=== PATIENT | male | born 2000 | race Hispanic/Latino ===

== ENCOUNTER 2019-01-28 21:58 | Emergency (ER) | payer BC ==
[2019-01-28 22:08] VITALS: BP 154/74
--- NOTE | 2019-01-28 22:12 | Emergency Department Report ---
Blank Doc - Documentation Documentation: 18 y o male presents to Ed with left knee pain, popped his knee twice while com ing down stairs ct knee ordered ACC eval
--- NOTE | 2019-01-28 23:16 | Emergency Department Report ---
ED Extremity Problem HPI - General Chief complaint: Extremity Injury, Lower Stated complaint: LEFT KNEE INJURY Time Seen by Provider: 01/28/19 22:03 Source: patient Mode of arrival: Wheelchair Limitations: No Limitations - History of Present Illness Initial comments: Pt is a 18 yo male who presents to the ED with left knee pain that began yesterday. He states he was walking and made a turn and felt a popping sensation in his left knee yesterday. He states then today he was walking down the steps and felt another popping sensation and fell to the ground. He states he is able to ambulate but it is uncomfortable. He denies any prior injuries. He denies any numbness. Severity scale (0 -10): 3 - Related Data Previous Rx's Medication Instructions Recorded Last Taken Type Ibuprofen 800 mg PO Q6HR PRN #20 tablet 01/28/19 Unknown Rx Allergies Allergy/AdvReac Type Severity Reaction Status Date / Time No Known Allergies Allergy Verified 01/06/16 22:54 ED Review of Systems ROS: Stated complaint: LEFT KNEE INJURY Other details as noted in HPI Comment: All other systems reviewed and negative ED Past Medical Hx - Past Medical History Previous Medical History?: No - Surgical History Past Surgical History?: Yes Hx Appendectomy: Yes - Social History Smoking Status: Never Smoker Substance Use Type: Alcohol - Medications Home Medications: Home Medications Medication Instructions Recorded Confirmed Last Taken Type Ibuprofen 800 mg PO Q6HR PRN #20 tablet 01/28/19 Unknown Rx ED Physical Exam - General Limitations: No Limitations General appearance: alert, in no apparent distress - Head Head exam: Present: atraumatic, normocephalic - Eye Eye exam: Present: normal appearance - ENT ENT exam: Present: mucous membranes moist - Respiratory Respiratory exam: Absent: respiratory distress - Cardiovascular Cardiovascular Exam: Present: regular rate - Extremities Exam Extremities exam: Present: other (mild amount of edema to the left knee, no joint laxity, TTP over the lateral portion of the left knee, FROM of the left knee with pain ) - Neurological Exam Neurological exam: Present: alert, oriented X3 - Psychiatric Psychiatric exam: Present: normal affect, normal mood - Skin Skin exam: Present: warm, dry, intact ED Course Vital Signs 01/28/19 22:05 Temperature 97.9 F Pulse Rate 91 H Respiratory 20 Rate Blood Pressure 154/74 O2 Sat by Pulse 100 Oximetry ED Medical Decision Making - Radiology Data Radiology results: report reviewed CLINICAL INDICATION: Male, 18 years of age. left knee pain, popping sensation COMPARISON: None available. FINDINGS: 3 views of the left knee obtained. Soft tissue swelling at the anterior margin of the knee. Small to moderate suprapatellar effusion. Bony structures are intact. Joint spaces are maintained. No acute fracture or dislocation. IMPRESSION: No acute bony abnormality. Soft tissue swelling and small to moderate suprapatellar effusion. This document is electronically signed by Yusuf Adan DO., January 28 2019 11:29:09 PM ET - Medical Decision Making Pt is a 18 yo male who presents to the ED with left knee pain that began yesterday. He states he was walking and made a turn and felt a popping sensation in his left knee yesterday. He states then today he was walking down the steps and felt another popping sensation and fell to the ground. He states he is able to ambulate but it is uncomfortable. He denies any prior injuries. He denies any numbness. Pt has edema and pain to the left lateral knee, no obvious joint laxity, no obvious deformity. XR of the knee with mild to moderate joint effusion otherwise normal. Will order outpatient MRI of the left knee for tomorrow (01/29/19), Dr. Martini agrees with order. Texted Dr. Ramirez, orthopedic who will follow up on left knee MRI and see patient in clinic. Will place pt in knee immobilizer and give crutches. Advised to use rest, ice, elevation. Will give anti-inflammatory. Advised to return to the ED for any new or worsening symptoms. - Differential Diagnosis fracture, dislocation, sprain, strain, tear Critical care attestation.: If time is entered above; I have spent that time in minutes in the direct care of this critically ill patient, excluding procedure time. ED Disposition Clinical Impression: Knee pain Qualifiers: Chronicity: acute Laterality: left Qualified Code(s): M25.562 - Pain in left knee Knee effusion Qualifiers: Laterality: left Qualified Code(s): M25.462 - Effusion, left knee Knee strain Qualifiers: Encounter type: initial encounter Laterality: left Qualified Code(s): S86.912A - Strain of unspecified muscle(s) and tendon(s) at lower leg level, left leg, initial encounter Disposition: TO HOME OR SELFCARE Is pt being admited?: No Does the pt Need Aspirin: No Condition: Stable Instructions: Knee Effusion (ED), Knee Pain (ED), Knee Immobilizer (ED) Additional Instructions: Follow up with orthopedic [facility]. Get MRI of left knee completed on 01/29. Follow up with PCP in the next 2-3 days. use rest, ice, elevation. Return to the emergency room for any new or worsening symptoms. Prescriptions: Ibuprofen 800 mg PO Q6HR PRN #20 tablet PRN Reason: Pain, Moderate (4-6) Referrals: DONAVNO MARTÍNEZ MD [Primary Care Provider] - 2-3 Days NORM RAMIREZ MD [Staff Physician] - [facility] Forms: Work/School Release Form(ED) Time of Disposition: 23:40 Print Language: TOGOLESE
--- NOTE | 2019-01-28 23:31 | XRay Report ---
XR KNEE 3V LT CLINICAL INDICATION: Male, 18 years of age. left knee pain, popping sensation COMPARISON: None available. FINDINGS: 3 views of the left knee obtained. Soft tissue swelling at the anterior margin of the knee. Small to moderate suprapatellar effusion. Bony structures are intact. Joint spaces are maintained. No acute fracture or dislocation. IMPRESSION: No acute bony abnormality. Soft tissue swelling and small to moderate suprapatellar effusion. This document is electronically signed by Yusuf Adan DO., January 28 2019 11:29:09 PM ET
== END 2019-01-29 00:25 | disposition home or self-care (01) ==
LOC: ED 21:58
DX: S86.912A Strain of unspecified muscle(s) and tendon(s) at lower leg level, left leg, initial encounter (principal); M25.462 Effusion, left knee; X50.9XXA Other and unspecified overexertion or strenuous movements or postures, initial encounter; Y93.89 Activity, other specified; Y92.89 Other specified places as the place of occurrence of the external cause; Y99.8 Other external cause status

== ENCOUNTER 2019-01-29 10:52 | Outpatient (CLI) | payer BC ==
--- NOTE | 2019-01-29 13:50 | Magnetic Resonance Report ---
MR LOWER EXTREMITY JOINT LEFT WITHOUT CONTRAST History: Left knee pain, left knee effusion. Technique: Multisequence, multiplanar MRI with and without fat suppression was performed through the left knee. Findings: Left knee films dated 01/28/19 were reviewed. There is moderate to severe diffuse anterior soft tissue edema. A large joint effusion is identified which extends to the suprapatellar bursa. A small popliteal cyst measures up to 1 cm. 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 The lateral retinaculum appears intact. The ACL, PCL, MCL, and LCL are intact. There is moderate fluid on both sides of the MCL consistent with at least a grade 1 strain. The quadriceps tendon and patellar tendon are intact. There is mild subchondral bone marrow edema in the lateral femoral condyle consistent with contusion. Intra-articular cartilage is intact and normal thickness. No obvious retropatellar cartilage defects. The medial and lateral menisci are normal. 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 Grade 1 MCL strain. Bone contusion in the lateral femoral condyle. Large joint effusion, small popliteal cyst and diffuse anterior soft tissue swelling.
== END 2019-01-29 10:53 | disposition home or self-care (01) ==
LOC: MRI 10:52
PROVIDERS: ATTEND Family Medicine
DX: S80.02XA Contusion of left knee, initial encounter (principal); M25.462 Effusion, left knee; K21.9 Gastro-esophageal reflux disease without esophagitis; Z90.49 Acquired absence of other specified parts of digestive tract; X58.XXXA Exposure to other specified factors, initial encounter; Y93.89 Activity, other specified; Y92.89 Other specified places as the place of occurrence of the external cause; Y99.8 Other external cause status
CPT/HCPCS: 73721